=== PATIENT | female | born 2000 | race Caucasian/White ===

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

== ENCOUNTER 2020-01-23 16:01 | Emergency (ER) | payer OTHER ==
[~2020-01-23] VITALS: Ht 172.7 cm; Wt 61.2 kg
[~2020-01-23 16:01] MED LIST: ONDANSETRON HCL4 M2 PO; SPRINTEC1 EACH PO
[2020-01-23 17:03] LABS: ABSOLUTE BASOPHILS 0.1 thou/uL (0.0-0.2); ABSOLUTE LYMPHOCYTES 3.3 thou/uL (0.8-5.3); ABSOLUTE MONOCYTES 1.4 thou/uL (0.0-1.2); ABSOLUTE NEUTROPHILS 4.7 thou/uL (1.6-8.1); BASOPHILS 0.7 %; EOSINOPHILS 0.2 %; HEMATOCRIT 38.7 % (37.0-47.0); HEMOGLOBIN 13.5 gm/dL (12.0-15.0); LYMPHOCYTES 34.4 %; MCHC 34.8 g/dL (28.0-37.0); MCV 80.4 fL (80.0-100.0); NUCLEATED RBCS 0 /100WBC; PLATELET COUNT* 365 thou/uL (150-400); POLYS 49.7 %; RBC 4.81 mil/uL (4.20-5.00); RDW-CV 14.7 % (10.5-14.5); WBC 9.5 thou/uL (4.0-11.0)
[2020-01-23 17:07] LABS: URINE BLOOD 3+ (Negative); URINE CLARITY CLEAR; URINE COLOR YELLOW; URINE GLUCOSE-RANDOM NEGATIVE (Negative); URINE LEUKOCYTES-REFLEX NEGATIVE (Negative); URINE NITRITE-REFLEX NEGATIVE (Negative); URINE PROTEIN 1+ (Negative); URINE SPECIFIC GRAVITY >= 1.030 (1.005-1.030); URINE UROBILINOGEN 0.2 E.U./dl (0.2-1.0)
[2020-01-23 17:11] LABS: CREATININE 0.9 mg/dL (0.6-1.3); POTASSIUM 4.1 mmol/L (3.5-5.1)
[2020-01-23 17:12] LABS: URINE BILIRUBIN 1+ (Negative); URINE KETONES 3+ (Negative)
[2020-01-23 17:14] LABS: ALBUMIN 3.9 g/dL (3.4-5.0); TOTAL BILIRUBIN 0.6 mg/dL (<0.1-1.0); TOTAL PROTEIN 9.4 g/dL (6.4-8.2)
[2020-01-23] MEDS ORDERED: AMOXICILLIN 50500 M1 PO (17:19)
[2020-01-23] MEDS ORDERED: ZOFRAN ODT4 MG PO (17:19)
[2020-01-23 17:21] LABS: INFLUENZA A ANTIGEN Negative (Negative); INFLUENZA B ANTIGEN Negative (Negative)
[2020-01-23 17:22] LABS: ICTOTEST (BILI CONFIRMATORY) Negative (Negative)
[2020-01-23 17:26] LABS: MUCUS >6 Heavy strn/LPF (None Seen); SQUAMOUS >10 Many /LPF (0-3)
[2020-01-23 17:27] LABS: BACTERIA-REFLEX 1-9 Few /HPF (None Seen); HYALINE CASTS 0-3 Few /LPF (None Seen); URINE RBC 3-10 Few /HPF (0-2)
[2020-01-23 17:28] LABS: CRYSTALS None Seen /LPF (None Seen); URINE WBC-REFLEX 0-5 Rare /HPF (0-5)
[2020-01-23 18:38] VITALS: BP 136/62
--- NOTE | 2020-01-24 11:20 | EKG ---
[place] [address] ELECTROCARDIOGRAM REPORT Name: CLAUDIA GARCIA Room: [facility]#: [id number] Admission: 01/23/20 Attend Phys: Discharge: 01/23/20 Date of : [birth year] Date of Service: 01/23/201641 Report #: [id number] THIS REPORT FOR: //name// [facility] ED Test Date: 2020-01-23 Test Time: 16:42:23 Pat Name: CLAUDIA GARCIA Department: Room: Gender: F [employer] Systems Technician: : 2000 Requested By: Annie Dunne Order Number: [id number] MD: Tawanda Smith Measurements Intervals [place] Rate: 93 P: 78 TN: 134 QRS: 63 QRSD: 72 T: 36 QT: 326 QTc: 406 Interpretive Statements Sinus rhythm Biatrial enlargement No previous ECG available for comparison Electronically Signed On 01-24-2020 11:19:05 CDT by Tawanda Smith [email or web address] <ELECTRONICALLY SIGNED> By: Tawanda Smith MD, [facility] 01/24/20 1119 [id number] 41 Tawanda Smith MD, FACC /EPI
== END 2020-01-23 18:39 | disposition home or self-care (01) ==
LOC: M.ERS 16:01
PROVIDERS: Nurse Practitioner Family
DX: J02.0 Streptococcal pharyngitis (principal); B27.90 Infectious mononucleosis, unspecified without complication; E86.0 Dehydration; R11.2 Nausea with vomiting, unspecified; R63.0 Anorexia